=== PATIENT | male | born 1990 | race Caucasian/White ===

== ENCOUNTER 2023-07-07 00:20 | Emergency (ER) | payer MEDICAID ==
[~2023-07-07] VITALS: Ht 167.6 cm; Wt 108.9 kg
[2023-07-07 00:47] VITALS: BP 133/84; PULSE 99; RESP 18; TEMP 98.6; O2SAT 100
[2023-07-07 02:00] VITALS: O2SAT 100
[2023-07-07] MEDS ORDERED: ACET-8905 PO (02:34)
[2023-07-07] MEDS: MORPHINE SULFATE 4 MG/ML SYR IM ONE (02:37)
== END 2023-07-07 02:42 | disposition home or self-care (01) ==
LOC: MED 00:20
DX: M79.671 Pain in right foot (principal); F17.210 Nicotine dependence, cigarettes, uncomplicated; Z79.899 Other long term (current) drug therapy; Z90.49 Acquired absence of other specified parts of digestive tract
CPT/HCPCS: 96372; 99283; J2270

== ENCOUNTER 2023-07-20 12:39 | Emergency (ER) | payer MEDICAID ==
[~2023-07-20] VITALS: Ht 167.6 cm; Wt 108.9 kg
[~2023-07-20 12:39] MED LIST: ACET-8905 PO
[2023-07-20 13:07] VITALS: BP 142/82; PULSE 87; RESP 18; TEMP 97.6; O2SAT 97
[2023-07-20] MEDS: KETOROLAC 30 MG/ML VIAL IM ONE (17:30)
[2023-07-20 18:08] VITALS: O2SAT 97
== END 2023-07-20 18:10 | disposition home or self-care (01) ==
LOC: MED 12:39
DX: M79.661 Pain in right lower leg (principal); M79.89 Other specified soft tissue disorders; Z79.899 Other long term (current) drug therapy
CPT/HCPCS: 73590; 93971; 96372; 99285; J1885; Q0092

== ENCOUNTER 2023-09-13 02:08 | Inpatient (IN) | payer MEDICAID ==
[~2023-09-13] VITALS: Ht 167.6 cm; Wt 104.3 kg
[2023-09-13 02:12] VITALS: BP 153/99; PULSE 88; RESP 18; TEMP 97.6; O2SAT 98
[2023-09-13 02:45] LABS: BASOPHILS % (AUTO) 0.3 % (0.0-2.0); EOSINOPHILS # (AUTO) 0.1 K/uL (0-0.4); EOSINOPHILS % (AUTO) 0.8 % (0.0-4.0); HEMATOCRIT 45.1 % (36-52); HEMOGLOBIN 15.6 g/dL (12.0-18.0); LYMPHOCYTES # (AUTO) 3.1 K/uL (2.0-11.5); LYMPHOCYTES % (AUTO) 23.7 % (20.5-51.1); MEAN CORPUSCULAR HEMOGLOBIN 32 pg (27-31); MEAN CORPUSCULAR HGB CONC 35 g/dL (33-37); MEAN CORPUSCULAR VOLUME 92.3 fL (80-94); MONOCYTES # (AUTO) 0.6 K/uL (0.8-1.0); NEUTROPHILS % (AUTO) 70.2 % (42.2-75.2); PLATELET COUNT (AUTO) 247 K/uL (140-450); RED BLOOD CELL COUNT(AUTO) 4.89 MIL/uL (4.20-6.10); RED CELL DISTRIBUTION WIDTH 15.5 % (11.6-13.7); WHITE BLOOD COUNT (AUTO) 12.9 K/uL (4.8-10.8)
[2023-09-13 03:01] LABS: ANION GAP 17.2 (8-16); CALCIUM 8.6 mg/dL (8.5-10.1); CARBON DIOXIDE 25.4 mmol/L (21-32); POTASSIUM 3.6 mmol/L (3.5-5.1)
[2023-09-13 03:04] LABS: INR 1.09 (0.8-1.2); PROTHROMBIN TIME 11.4 secs (10.8-13.4)
[2023-09-13 03:10] LABS: ALBUMIN 4.2 g/dL (3.4-5.0); BILIRUBIN,DIRECT 0.1 mg/dL (0.0-0.3); TOTAL BILIRUBIN 1.5 mg/dL (0.0-1.0); TOTAL PROTEIN, SERUM 7.7 g/dL (6.4-8.2)
[2023-09-13] MEDS ORDERED: ONDANSETRON 4 MG/2 ML VIAL IVP PRN (03:50)
[2023-09-13] MEDS: PANTOPRAZOLE 40 MG INJ VIAL IVP ONE (03:54)
[2023-09-13] MEDS: NACL 0.9% 1,000 ML IV ONE (03:54)
[2023-09-13] MEDS: DEXT 5% /NACL 0.9% 1,000 ML IV SCH (03:59)
[2023-09-13] MEDS ORDERED: MORPHINE SULFATE 4 MG/ML SYR ONE (04:48)
[2023-09-13 07:09] LABS: BASOPHILS % (AUTO) 0.2 % (0.0-2.0); EOSINOPHILS # (AUTO) 0.1 K/uL (0-0.4); HEMATOCRIT 40.3 % (36-52); HEMOGLOBIN 13.9 g/dL (12.0-18.0); LYMPHOCYTES # (AUTO) 2.9 K/uL (2.0-11.5); MEAN CORPUSCULAR HEMOGLOBIN 32 pg (27-31); MEAN CORPUSCULAR HGB CONC 34 g/dL (33-37); MEAN CORPUSCULAR VOLUME 92.5 fL (80-94); MONOCYTES # (AUTO) 0.6 K/uL (0.8-1.0); MONOCYTES % (AUTO) 5.1 % (1.7-9.3); NEUTROPHILS # (AUTO) 7.6 K/uL (1.8-7.7); NEUTROPHILS % (AUTO) 67.7 % (42.2-75.2); PLATELET COUNT (AUTO) 219 K/uL (140-450); RED BLOOD CELL COUNT(AUTO) 4.36 MIL/uL (4.20-6.10); RED CELL DISTRIBUTION WIDTH 15.2 % (11.6-13.7); WHITE BLOOD COUNT (AUTO) 11.2 K/uL (4.8-10.8)
[2023-09-13 07:48] LABS: CALCIUM 7.6 mg/dL (8.5-10.1); CARBON DIOXIDE 24.8 mmol/L (21-32); CREATININE 0.9 mg/dL (0.6-1.3); POTASSIUM 3.8 mmol/L (3.5-5.1)
[2023-09-13] MEDS: MORPHINE SULFATE 2 MG/ML SYR IVP PRN (10:22)
[2023-09-13] MEDS: PANTOPRAZOLE 40 MG INJ VIAL IVP SCH (11:24)
[2023-09-13] MEDS: LORazepam 2 MG/ML VIAL IM/IVP PRN (17:12)
[2023-09-13 20:20] VITALS: BP 114/70; PULSE 66; PULSE 68; RESP 20; TEMP 97.2; O2SAT 99
[2023-09-13 21:30] VITALS: O2SAT 99
[2023-09-14] VITALS: BP 119/69; PULSE 60; PULSE 71; RESP 18; TEMP 97.7; O2SAT 96
[2023-09-14 04:00] VITALS: BP 98/48; PULSE 60; PULSE 66; RESP 18; TEMP 97.7; O2SAT 96
[2023-09-14 05:43] LABS: ANION GAP 11.1 (8-16); CALCIUM 7.7 mg/dL (8.5-10.1); CARBON DIOXIDE 28.3 mmol/L (21-32); CREATININE 0.8 mg/dL (0.6-1.3); POTASSIUM 3.4 mmol/L (3.5-5.1)
[2023-09-14 06:45] LABS: BASOPHILS % (AUTO) 0.4 % (0.0-2.0); EOSINOPHILS # (AUTO) 0.2 K/uL (0-0.4); HEMATOCRIT 37.8 % (36-52); HEMOGLOBIN 12.7 g/dL (12.0-18.0); LYMPHOCYTES # (AUTO) 2.8 K/uL (2.0-11.5); LYMPHOCYTES % (AUTO) 29.6 % (20.5-51.1); MEAN CORPUSCULAR HEMOGLOBIN 32 pg (27-31); MEAN CORPUSCULAR HGB CONC 34 g/dL (33-37); MONOCYTES # (AUTO) 0.5 K/uL (0.8-1.0); MONOCYTES % (AUTO) 5.2 % (1.7-9.3); NEUTROPHILS % (AUTO) 62.8 % (42.2-75.2); PLATELET COUNT (AUTO) 177 K/uL (140-450); RED BLOOD CELL COUNT(AUTO) 4.03 MIL/uL (4.20-6.10); RED CELL DISTRIBUTION WIDTH 15.7 % (11.6-13.7); WHITE BLOOD COUNT (AUTO) 9.5 K/uL (4.8-10.8)
[2023-09-14] MEDS: POTASSIUM CHLORIDE 10 MEQ TABER PO SCH (07:32)
[2023-09-14 08:00] VITALS: BP 117/84; PULSE 63; PULSE 66; RESP 18; TEMP 98.1; O2SAT 96
[2023-09-14] MEDS ORDERED: PANT40EC PO (10:08)
[2023-09-14] MEDS ORDERED: ALPR0.252 PO (10:08)
[2023-09-14] MEDS ORDERED: BEN10 PO (10:08)
[2023-09-14 10:16] VITALS: BP 117/84; PULSE 63; RESP 18; TEMP 98.1
== END 2023-09-14 11:00 | disposition home or self-care (01) | DRG 254 ==
LOC: MED 02:08 → MTU 03:53
PROVIDERS: ADMIT Internal Medicine; ATTEND Internal Medicine
DX: K92.1 Melena (principal); F10.139 Alcohol abuse with withdrawal, unspecified; Y90.9 Presence of alcohol in blood, level not specified; Z79.1 Long term (current) use of non-steroidal anti-inflammatories (NSAID); Z79.899 Other long term (current) drug therapy
CPT/HCPCS: 36415; 80048; 80076; 83690; 85025; 85610; 86886; 86900; 86901; 87081; 96361; 96374; 99285; C9113; J2060; J2270; J2405

== ENCOUNTER 2023-09-19 23:50 | Emergency (ER) | payer MEDICAID ==
[~2023-09-19] VITALS: Ht 170.2 cm; Wt 113.4 kg
[~2023-09-19 23:50] MED LIST changes: +ALPR0.252 PO; +BEN10 PO; +PANT40EC PO
[2023-09-20 00:10] VITALS: BP 111/77; PULSE 119; RESP 20; TEMP 98; O2SAT 95
[2023-09-20 00:29] VITALS: TEMP 98; O2SAT 98
[2023-09-20] MEDS ORDERED: CHLO473L1 PO (00:43)
[2023-09-20 01:20] VITALS: BP 137/84; PULSE 112; RESP 14; O2SAT 94
== END 2023-09-20 01:15 ==
LOC: MED 23:50
DX: S01.512A Laceration without foreign body of oral cavity, initial encounter (principal); V49.88XA Car occupant (driver) (passenger) injured in other specified transport accidents, initial encounter; Y93.89 Activity, other specified; Y92.89 Other specified places as the place of occurrence of the external cause; Y99.8 Other external cause status
CPT/HCPCS: 71045; 99283; Q0092